=== PATIENT | female | born 1980 | race Caucasian/White ===

== ENCOUNTER 2016-11-14 11:50 | Emergency (ER) | payer OTHER ==
[~2016-11-14] VITALS: Ht 154.9 cm; Wt 72.6 kg
--- NOTE | ~2016-11-14 | EKG ---
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
[2016-11-14] MEDS ORDERED: MOBIC15 MG PO (14:22)
[2016-11-14 14:44] VITALS: BP 165/84
== END 2016-11-14 14:56 | disposition home or self-care (01) ==
LOC: ER 11:50
DX: M94.0 Chondrocostal junction syndrome [Tietze] (principal); F41.9 Anxiety disorder, unspecified; F10.99 Alcohol use, unspecified with unspecified alcohol-induced disorder

== ENCOUNTER 2017-09-24 12:07 | Emergency (ER) | payer OTHER ==
[~2017-09-24] VITALS: Ht 152.4 cm; Wt 72.6 kg
--- NOTE | ~2017-09-24 | EKG ---
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: [facility] : 1980 Requested By: Kasia Sharma Order Number: [id number] MD: Hardik Floyd Measurements Intervals [place] Rate: 110 P: 65 SC: 138 QRS: 20 QRSD: 96 T: -22 QT: 329 QTc: 446 Interpretive Statements Sinus tachycardia Nonspecific T abnormalities, anterior leads Compared to ECG 11/14/2016 12:11:31 No significant changes Electronically Signed On 09-24-2017 16:39:46 CDT by Hardik Floyd [email or web address] <ELECTRONICALLY SIGNED> By: Hardik Floyd MD, [facility] 09/24/17 1639 1240 1240 Hardik Floyd MD, FACC /EPI
[~2017-09-24 12:07] MED LIST: MOBIC15 MG PO
[2017-09-24 13:56] LABS: ABSOLUTE NEUTROPHILS 5.6 thou/uL (1.4-8.2); BASOPHILS 0.3 % (0.0-2.0); EOSINOPHILS 0.1 % (0.0-3.0); HEMATOCRIT 42.4 % (37.0-47.0); HEMOGLOBIN 14.5 gm/dL (12.0-15.0); LYMPHOCYTES 22.6 % (24.0-44.0); MCH 32.2 pg (26.0-34.0); MCHC 34.3 g/dL (28.0-37.0); MCV 93.8 fL (80.0-100.0); MONOCYTES 6.3 % (1.0-8.0); PLATELET COUNT 223 thou/uL (150-400); POLYS 70.7 % (36.0-66.0); RBC 4.52 mil/uL (4.20-5.00); URINE BILIRUBIN NEGATIVE (Negative); URINE BLOOD NEGATIVE (Negative); URINE CLARITY SL CLOUDY; URINE COLOR YELLOW; URINE GLUCOSE-RANDOM* NEGATIVE (Negative); URINE KETONES 1+ (Negative); URINE LEUKOCYTES NEGATIVE (Negative); URINE NITRITE NEGATIVE (Negative); URINE PROTEIN (DIPSTICK) TRACE (Negative); URINE SPECIFIC GRAVITY 1.025 (1.005-1.035); URINE UROBILINOGEN 0.2 E.U./dl (0.2-1.0); WBC 7.9 thou/uL (4.0-11.0)
[2017-09-24] MEDS ORDERED: LISINOPRIL-HCT1 EAC2 PO (13:58)
[2017-09-24] MEDS ORDERED: ORTHO TRI-CYCL1 EACH PO (14:00)
[2017-09-24 14:03] LABS: ANION GAP 14 mmol/L (7-16); BUN 10 mg/dL (7-18); CALCIUM 8.8 mg/dL (8.5-10.1); CHLORIDE 93 mmol/L (98-107); CO2 24 mmol/L (21-32); CREATININE 0.8 mg/dL (0.6-1.0); GLUCOSE 108 mg/dL (74-106); POTASSIUM 3.7 mmol/L (3.5-5.1); SODIUM 131 mmol/L (136-145)
[2017-09-24 14:12] LABS: ALBUMIN 3.6 g/dL (3.4-5.0); SGOT 170 U/L (15-37); SGPT 94 U/L (30-65); TOTAL BILIRUBIN 2.9 mg/dL (<0.1-1.0); TOTAL PROTEIN 7.6 g/dL (6.4-8.2); TROPONIN-I < 0.04 ng/mL (<0.06)
[2017-09-24] MEDS ORDERED: ATIVAN0.5 MG PO (15:23)
[2017-09-24] MEDS ORDERED: BUTALB-APAP-CA1 EACH PO (15:56)
[2017-09-24] MEDS ORDERED: MOBIC7.5 MG PO (15:56)
[2017-09-24 16:07] VITALS: BP 129/87
== END 2017-09-24 16:08 | disposition home or self-care (01) ==
LOC: ER 12:07
PROVIDERS: Physician Assistant
DX: R07.9 Chest pain, unspecified (principal); F41.9 Anxiety disorder, unspecified; R51 Headache; R20.2 Paresthesia of skin; Z91.14 Patient's other noncompliance with medication regimen; F32.9 Major depressive disorder, single episode, unspecified

== ENCOUNTER 2018-04-24 09:14 | Emergency (ER) | payer OTHER ==
[~2018-04-24] VITALS: Ht 152.4 cm; Wt 72.6 kg
--- NOTE | ~2018-04-24 | EKG ---
[address] [address] ELECTROCARDIOGRAM REPORT Name: ADALGISA MACIEL Berta Room #: [facility]#: [id number] Admission: 04/24/18 Attend Phys: Discharge: Date of : 82 Report #: [id number] THIS REPORT FOR: //name// 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
[~2018-04-24 09:14] MED LIST changes: +ATIVAN0.5 MG PO; +BIRTH CONTROL; +BUTALB-APAP-CA1 EACH PO; +LISINOPRIL-HCT1 EAC2 PO; +MOBIC7.5 MG PO; +ORTHO TRI-CYCL1 EACH PO; +ZOFRAN ODT4 MG PO
[2018-04-24 09:43] LABS: ABSOLUTE NEUTROPHILS 2.7 thou/uL (1.4-8.2); BASOPHILS 0.9 % (0.0-2.0); EOSINOPHILS 1.1 % (0.0-3.0); HEMATOCRIT 43.1 % (37.0-47.0); HEMOGLOBIN 14.7 gm/dL (12.0-15.0); MCHC 34.2 g/dL (28.0-37.0); MCV 93.7 fL (80.0-100.0); MONOCYTES 10.5 % (1.0-8.0); PLATELET COUNT 212 thou/uL (150-400); POLYS 49.5 % (36.0-66.0); RDW 15.2 % (10.5-14.5); WBC 5.5 thou/uL (4.0-11.0)
[2018-04-24 09:51] LABS: ANION GAP 14 mmol/L (7-16); BUN 6 mg/dL (7-18); CALCIUM 9.8 mg/dL (8.5-10.1); CHLORIDE 99 mmol/L (98-107); CO2 24 mmol/L (21-32); CREATININE 0.6 mg/dL (0.6-1.0); GLUCOSE 93 mg/dL (74-106); POTASSIUM 3.6 mmol/L (3.5-5.1)
[2018-04-24 09:54] LABS: SODIUM 137 mmol/L (136-145)
[2018-04-24 09:59] LABS: SGOT 183 U/L (15-37); SGPT 118 U/L (30-65); TOTAL BILIRUBIN 2.1 mg/dL (<0.1-1.0); TOTAL PROTEIN 8.3 g/dL (6.4-8.2); TROPONIN-I <0.06 ng/mL (<0.06)
[2018-04-24] MEDS ORDERED: ATIVAN0.5 MG PO (11:33)
[2018-04-24] MEDS ORDERED: LISINOPRIL-HCT1 EAC2 PO (11:33)
[2018-04-24] MEDS ORDERED: MOBIC7.5 MG PO (12:07)
[2018-04-24 12:10] VITALS: BP 158/99
== END 2018-04-24 12:11 | disposition home or self-care (01) ==
LOC: ER 09:14
PROVIDERS: Physician Assistant
DX: F41.9 Anxiety disorder, unspecified (principal); R07.89 Other chest pain; I10 Essential (primary) hypertension; E83.42 Hypomagnesemia; Z76.0 Encounter for issue of repeat prescription; M79.604 Pain in right leg; F32.9 Major depressive disorder, single episode, unspecified

== ENCOUNTER 2019-08-12 05:12 | Inpatient (IN) | payer OTHER ==
[2019-08-12] VITALS (7 sets, daily range): BP systolic 101–130; BP diastolic 65–83
[~2019-08-12] VITALS: Ht 154.9 cm; Wt 74.7 kg
[2019-08-12] MEDS ORDERED: SUPER THERAVIT1 EACH PO (05:21)
--- NOTE | 2019-08-12 06:53 | NUR ---
NURSE ATTEMPT LINE AND TUBES X3, LINE PLACED FOR MEDICATION ET FLUIDS. LAB NOTIFIED TO DRAW LABS NEEDED 0644.
[2019-08-12 08:28] LABS: HEMATOCRIT 41.8 % (37.0-47.0); HEMOGLOBIN 13.2 gm/dL (12.0-15.0); MCH 32.8 pg (26.0-34.0); MCHC 31.5 g/dL (28.0-37.0); MCV 104.2 fL (80.0-100.0); RBC 4.01 mil/uL (4.20-5.00); RDW 18.4 % (10.5-14.5); WBC 8.9 thou/uL (4.0-11.0)
[2019-08-12 08:37] LABS: ANION GAP 25 mmol/L (7-16); BUN 9 mg/dL (7-18); CALCIUM 8.9 mg/dL (8.5-10.1); CHLORIDE 89 mmol/L (98-107); CO2 17 mmol/L (21-32); CREATININE 1.4 mg/dL (0.6-1.0); GLUCOSE 83 mg/dL (74-106); POTASSIUM 3.6 mmol/L (3.5-5.1); SODIUM 131 mmol/L (136-145)
[2019-08-12 08:40] LABS: PROTIME 21.7 Seconds (9.3-11.4)
[2019-08-12 08:47] LABS: INR 2.1; LIPASE 117 U/L (73-393); SGOT 244 U/L (15-37); SGPT 78 U/L (30-65); TOTAL BILIRUBIN 9.6 mg/dL (<0.1-1.0); TOTAL PROTEIN 6.7 g/dL (6.4-8.2); TROPONIN-I <0.06 ng/mL (<0.06)
[2019-08-12 08:57] LABS: ABSOLUTE NEUTROPHILS 6.6 thou/uL (1.4-8.2)
[2019-08-12 08:58] LABS: ANISOCYTOSIS 1+; PLATELET COUNT 117 thou/uL (150-400); PLATELET ESTIMATE NORMAL
[2019-08-12 09:51] LABS: BE(vivo) -12.7 mmol/L (-2 to +3); HCO3 10.5 mmol/L (22.0-26.0); PO2 94.6 mmHg (80.0-100.0); pH 7.363 (7.360-7.450); sO2 97.2 % (92.0-98.0)
[2019-08-12 09:56] LABS: PCO2 18.9 mmHg (35.0-45.0)
[2019-08-12 10:11] LABS: MAGNESIUM 1.1 mg/dL (1.8-2.4); PHOSPHORUS 3.9 mg/dL (2.5-4.9)
--- NOTE | 2019-08-12 10:35 | NUR ---
HAND OFF TOOL SENT AT THIS TIME
[2019-08-12 10:59] LABS: FOLIC ACID 9.8 ng/mL (8.6-58.9)
--- NOTE | 2019-08-12 15:45 | EKG ---
[facility] [place] [address] ELECTROCARDIOGRAM REPORT Name: ADALGISA MACIEL Room #: 216-P ADM IN M.R.#: [id number] Admission: 08/12/19 Attend Phys: Douglas Kay MD Discharge: Date of : 82 Report #: [id number] THIS REPORT FOR: cc: NO FAMILY PHYSICIAN or PCP NO FAMILY PHYSICIAN or PCP Hardik Floyd MD [facility] THIS REPORT FOR: //name// [facility] ED Test Date: 2019-08-12 Test Time: 05:22:18 Pat Name: ADALGISA MACIEL Department: Room: 216 Gender: F Behavior Therapist: KELSEY : 1980 Requested By: Gildardo Cotton Order Number: [id number] MD: Hardik Floyd Measurements Intervals [place] Rate: 115 P: 52 [place]: 135 QRS: 30 QRSD: 85 T: 20 QT: 331 QTc: 458 Interpretive Statements Sinus tachycardia RSR' in V1 or V2, right VCD Compared to ECG 04/24/2018 09:26:58 RSR' in V1 or V2 now present Electronically Signed On 08-12-2019 15:43:59 CDT by Hardik Floyd [email or web address] <ELECTRONICALLY SIGNED> By: Hardik Floyd MD, [facility] 08/12/19 1543 0522 0522 Hardik Floyd MD, [facility] /EPI
[2019-08-13] VITALS (8 sets, daily range): BP systolic 110–124; BP diastolic 73–81
[2019-08-13 07:44] LABS: HEMATOCRIT 36.4 % (37.0-47.0); MCH 33.1 pg (26.0-34.0); MCV 100.3 fL (80.0-100.0); RBC 3.63 mil/uL (4.20-5.00); RDW 18.3 % (10.5-14.5); WBC 6.1 thou/uL (4.0-11.0)
[2019-08-13 08:05] LABS: PROTIME 20.7 Seconds (9.3-11.4)
[2019-08-13 08:06] LABS: CALCIUM 7.7 mg/dL (8.5-10.1); CREATININE 1.6 mg/dL (0.6-1.0); MAGNESIUM 1.2 mg/dL (1.8-2.4)
[2019-08-13 08:08] LABS: POTASSIUM 2.9 mmol/L (3.5-5.1)
[2019-08-13 08:25] LABS: ABSOLUTE NEUTROPHILS 4.1 thou/uL (1.4-8.2); ANISOCYTOSIS 1+; PLATELET COUNT 82 thou/uL (150-400); PLATELET ESTIMATE DECREASED
[2019-08-13 10:28] LABS: ALBUMIN 2.5 g/dL (3.4-5.0); DIRECT BILIRUBIN 6.8 mg/dL (<0.1-0.2); TOTAL PROTEIN 5.5 g/dL (6.4-8.2)
--- NOTE | 2019-08-13 13:11 | NUR ---
assessment: CM REVIEWED CHART AND MET WITH PATIENT AT THE BEDSIDE. PT IS ALERT AND ORIENTED X4. PT REPORTS SHE LIVES AT HOME WITH HER FAMILY AND IS INDEPENDENT WITH ADLS AND AMBULATION. PATIENT IS LISTED PATIENT PAY AND CM DID CONFIRM WITH PATIENT THAT SHE DOES NOT HAVE INSURANCE. CM RECEIVED A CONSULT FOR ALCOHOL ABUSE. CM DISCUSSED IF PATIENT NEEDED ANY RESOURCES FOR AA/ALCOHOL USE AND PT DENIES THE NEED FOR IT. CM DISCUSSED ROLE. PT DOES NOT ANTICIPATE HAVING ANY NEEDS.
--- NOTE | 2019-08-13 18:38 | NUR ---
ADMISSIONS TEAM CALLED BACK AND DENIES THIS PT TRANSFER TO [facility]. DR CASTAÑEDA AND GRAIN MIXER WERE PAGED TO NOTIFY BUT NO CALL BACK THIS TIME.
--- NOTE | 2019-08-13 21:57 | NUR ---
PT 2045HRS APTT 183.7. HEPARIN TURNED OFF FOR 1 HR PER PROTOCOL AND NEON PUMPER NOTIIFIED OF CRITICALLY HIGH APTT. ORDER TO REPEAT THE APTT LAB AND FOLLOW THE PROTOCOL
[2019-08-14 01:44] LABS: URINE BILIRUBIN 3+ (Negative); URINE BLOOD TRACE (Negative); URINE CLARITY SL CLOUDY; URINE COLOR YELLOW; URINE GLUCOSE-RANDOM* TRACE (Negative); URINE KETONES TRACE (Negative); URINE LEUKOCYTES-REFLEX TRACE (Negative); URINE NITRITE-REFLEX NEGATIVE (Negative); URINE PROTEIN (DIPSTICK) 1+ (Negative)
[2019-08-14 01:54] LABS: AMP/METHAMP Negative (Negative); BARBITURATES Negative (Negative); BENZODIAZEPINES Negative (Negative); COCAINE Negative (Negative); METHADONE Negative (Negative); OPIATES Negative (Negative); PCP Negative (Negative)
[2019-08-14 02:01] LABS: BACTERIA-REFLEX 1-9 Few /HPF (None Seen); MUCUS 0-3 Light strn/LPF (None Seen); SQUAMOUS 4-10 Moderate /LPF (0-3); URINE RBC 0-2 Rare /HPF (0-2); URINE WBC-REFLEX 0-5 Rare /HPF (0-5)
[2019-08-14 02:02] LABS: CALCIUM OXALATE 0-3 Few /LPF (None Seen); CELLULAR CASTS 0-3 Few /LPF (None Seen); HYALINE CASTS 0-3 Few /LPF (None Seen)
[2019-08-14 04:45] VITALS: BP 115/73
[2019-08-14 05:20] LABS: CALCIUM 7.9 mg/dL (8.5-10.1); CREATININE 1.2 mg/dL (0.6-1.0); MAGNESIUM 1.2 mg/dL (1.8-2.4); PHOSPHORUS 0.6 mg/dL (2.5-4.9)
[2019-08-14 05:22] LABS: POTASSIUM 2.9 mmol/L (3.5-5.1)
--- NOTE | 2019-08-14 05:55 | NUR ---
CRITICAL LAB RESULSTS APPT = 109.1, K = 2.9, MG = 1.2. CHIEF COUNSEL NOTIFIED. ORDERS OBTAINED FOR KCL 40 MEQ PO X1, MG SULFATE 4MG IV X1 AND CONTINUE FOLLOWING PROTOCOL FOR HEPARIN & APTT. CHECKED WITH PHARMACY AND PHARMACY CONFIRMED THAT MG SULFATE IS COMPATIBLE WITH BOTH NS W/KCL AND ZOYSN WHICH ARE BOTH RUNNING OF ONE OF PT'S IV LINES.
[2019-08-14 08:40] VITALS: BP 115/83
[2019-08-14 11:48] VITALS: BP 113/68
--- NOTE | 2019-08-14 11:56 | NUR ---
ON-GOING ASSESSMENT: LEONORA WAS NOTIFIED THAT PATIENT IS NEEDING TO TRANSFER TO ANOTHER [facility]UTE [facility] FOR DIAGNOSTIC LAPROSCOPY DUE TO PORTAL VEIN THROMBOSIS. CM WORKING WITH TO ATTEMPT TO TRANSFER AND CONTACTED [facility] WHO REPORTS THEY CANNOT ACCEPT AT THIS TIME DUE TO BEING AT CAPACITY FOR PATIENT PAY SERVICES. [facility] TRANSFER TEAM WAS CONTACTED AND AWAITING FURTHER INPUT AT THIS TIME. LEONORA ALSO LEFT VM WITH [facility] AND AWAITING INPUT.
[2019-08-14 12:19] LABS: MAGNESIUM 2.6 mg/dL (1.8-2.4); POTASSIUM 3.1 mmol/L (3.5-5.1)
--- NOTE | 2019-08-14 15:17 | NUR ---
leonora spoke with heidy AT [facility] TRANSFER LINE [phone] WHO STATES THAT [facility] HAS DECLINE, THEY HAVE SENT INFORMATION TO [place] WHO HAS TO REVIEW WITH ADMINISTRATION TO SEE IF THEY HAVE MET THEIR CAP OR IF THEY COULD POSSIBLE ACCEPT. CLINICAL HAS ALSO BEEN SENT TO [facility] WHO WILL REVIEW. ALSO LEONORA ATTEMPTED TO REACH OUT [place] AND LEFT MULTIPLE MESSAGES BUT HAS NOT RECEIVED A CALL BACK YET. LEONORA ALSO CONTACTED [facility] AND WILL CONTACT DR GUILLEN ABOUT POSSIBLE ACCEPTANCE AND WAITING ON INPUT.
--- NOTE | 2019-08-14 15:35 | NUR ---
AWAITING ON INPUT FROM POSSIBLE FACILITIES FOR TRANSFER. CM WILL CONTACT UNIT OR FACILITY WILL CONTACT UNIT DIRECTLY IF THEY ARE ABLE TO ACCEPT. REPORT NUMBER WILL BE PROVIDED AT THAT TIME. CHART COPY HAS BEEN ORDERED.CM HAS AMBULANCE FORM ON THE FRONT OF THE CHART THAT WILL NEED TO BE FINISHED AND FAXED TO [facility] FAX:[phone] THEN CONTACT THEM AT [phone] TO ARRANGE TRANSPORT. TRANSFER FORM IS ALSO ON THE FRONT OF CHART AND CM DISCUSSED WITH RN ABOUT COMPLETING THIS PRIOR TO DISCHARGE. STILL AWAITING INPUT FROM [facility], [facility], AND [facility] AT THIS TIME. ATTENDING AND DR. GUILLEN AWARE. CM WILL CONTINUE TO FOLLOW.
[2019-08-14 16:26] VITALS: BP 108/75
--- NOTE | 2019-08-14 16:51 | NUR ---
PT CARE ASSUMED APPROX 0700. PT DENIES PAIN AND SOA. VSS. UP WITH SBA. TOLERATING POC. ELECTROLYTE REP TO POC THIS SHIFT. WILL MONITOR. HEP GTT REMAINS TO POC. TITRATING PER PROTOCOL. PT ACCEPTED AT [facility] TRANSFER. AWAITING TRANSFER TEAM TO CALL BACK WITH ROOM NUMBER AND ROUTE FOR REPORT. CASE MANAGEMENT AWARE. DRs AWARE. PT DENIES QUESTIONS OR CONCERNS REGARDING POC OR TRANSFER. WILL CONTINUE TO TREAT UNTIL DISCHARGE. THIS NURSE TO FOLLOW UP WITH DISCHARGE PLANS.
--- NOTE | 2019-08-14 17:18 | NUR ---
[facility] DENIED PT AFTER INITITALLY ACCEPTING SO CASE MANAGEMENT NOTIFIED AND DR WALKER AWARE. CASE MAN REPORTS THAT THEY WILL NOTIFY DR GUILLEN. PT AWARE AND DENIES QUESTIONS OR CONCERNS.
[2019-08-14 19:19] LABS: % SATURATION 37 % (20-39); IRON 53 ug/dL (50-170); TIBC 144 ug/dL (250-450)
[2019-08-14 19:36] VITALS: BP 107/71
[2019-08-15 00:24] VITALS: BP 108/66
[2019-08-15 01:57] VITALS: BP 108/66
[2019-08-15 04:27] VITALS: BP 104/66
[2019-08-15 05:08] LABS: IgG 1102 mg/dL (700-1600)
--- NOTE | 2019-08-15 05:26 | NUR ---
ASSUMED PT CARE AT AROUND 1900, PT IS ALERT AND ORIENTEDX4, ASSESSMENTS CHARTED, SR ON THE MONITOR, VSS, ON ROOM AIR, CONTINUES TO RECEIVE HEPARIN, MEDS GIVEN CHARTED, RESTING IN BED WITH, NO COMPLAINS, WILL CONTINUE TO MONITOR
[2019-08-15 05:46] LABS: CALCIUM 7.4 mg/dL (8.5-10.1); POTASSIUM 3.6 mmol/L (3.5-5.1)
[2019-08-15 07:30] VITALS: BP 111/66
--- NOTE | 2019-08-15 08:03 | NUR ---
late entry from 08/14/19: leonora spoke with [facility] who states after further review they decline patient stating she needs a hepatibiliary surgeon and she needs to go to . LEONORA NOTIFIED ATTENDING/ DR GUILLEN. CM CONTACTED TO SEE IF THEY WOULD REVISIT THIS CASE DUE TO PATIENT NEEDING A HEPATIBILIARY SURGEON AND NO OTHER FACILITY HAS ACCEPTED HER AND THIS IS AN EMERGENT SITUATION. THEY STATED THEY HAVE ALREADY DECLINED PATIENT AND THAT STILL STANDS. CM ATTEMPTED TO DISCUSS REVISITING THE CASE DUE TO SEVERITY OR RISK FOR PT AND THEY STATE SHE IS STILL DECLINE. LEONORA REACHED OUT TO DR GUILLEN AND ASKED IF WE COULD MERGE A CALL TO SEE IF THEY WOULD RECONSIDER. LEONORA WELL DR. GUILLEN SPOKE WITH TRANSFER NURSE WHO STATES THEY CONTINUE TO DECLINE PATIENT AND CAN TAKE DR GUILLEN NUMBER DOWN BUT SHE CANNOT GUARENTEE A CALL BACK. LEONORA REACHED OUT TO [facility] TRANSFER TEAM TO CONIRM IF [facility] TO SEE IF THEY HAD A HEPATIBILIARY SURGEON AND IF THEY COULD PLEASE RE-REVIEW THIS CASE PATIENT IS NEEDING HIGHER LEVEL OF CARE. SHE STATES SHE WOULD ESCALATE IT TO SEE IF IT COULD BE REREVIEWED. [facility] ENDED UP ACCEPTING PATIENT BUT CANNOT ACCEPT UNTIL 08/14 IN THE AM. LENOORA NOTIFIED ATTENDING AND DR. GUILLEN WELL BEDSIDE RN.
[2019-08-15 08:15] VITALS: BP 111/66
--- NOTE | 2019-08-15 08:15 | NUR ---
ON-GOING ASSESSMENT: PT IS TO TRANSFER TO [facility] TODAY. CHART COPY IS ON THE FRONT OF CHART. CM PROVIDED BEDSIDE RN WITH THE TRANSFER FORM. [facility] FORM IS ON THE FRONT OF CHART. LEONORA CONTACTED [facility] TO ARRANGE TRANSPORTATION AND HAS BEEN ARRANGED FOR . BEDSIDE RN NOTIFIED WELL PATIENT. BEDSIDE RN HAD THE NUMBER TO CALL REPORT TO [facility]. ATTENDING NOTIFIED AND VISITED WITH PATIENT THIS AM. PATIENT IS GOING TO [facility] ON HEPARIN GTT WITH PUMP AND WILL NEED THE PUMP BROGHT BACK TO [facility]. LEONORA CONTACTED JOSE GREENWOOD [phone] TO GO TO [facility] TO VICE PRESIDENT [employer] SALES PUMP AND BRING IT BACK TO [facility] (TRACKING NUMBER [id number]). LEONORA SPOKE WITH RN AT [facility] WHO STATES SHE WOULD LEAVE THE PUMP AT THE NURSES STATING AND NOTIFIED JOSE GREENWOOD OF LOCATION PUMP AT [facility] WILL BE ON 4N.
[2019-08-15] MEDS ORDERED: ZOSYN 3.3753.375 GM IV (08:30)
[2019-08-15] MEDS ORDERED: HEPARIN SO1000 UNIT/ IV PUSH (08:30)
[2019-08-15] MEDS ORDERED: LACTULOSE20 GM/30 M PO (08:32)
[2019-08-15] MEDS ORDERED: FENTANYL 050 MCG/1 M IV PUSH (08:32)
[2019-08-15] MEDS ORDERED: PEPCID20 MG PO (08:33)
[2019-08-15] MEDS ORDERED: VITAMIN B-1100 M2 PO (08:33)
[2019-08-15] MEDS ORDERED: K-DUR 20 MEQ T20 MEQ PO (08:33)
--- NOTE | 2019-08-15 08:54 | NUR ---
PT CARE ASSUMED APPROX 0700. PT DENIES PAIN AND SOA. VSS. HEP GTT REMAINS TO POC. PT TOLERATING POC AND DENIES QUESTIONS OR CONCERNS REGARDING POC OR HOSPITAL TRANSFER. ARRANGEMENTS MADE THIS AM FOR PT TO BE RECEIVED AT [facility] THIS AM. REPORT CALLED TO [facility] FLOOR NURSE. SHE DENIED QUESTIONS OR CONCERNS REGARDING TRANSFER OR PT POC. CASE MANAGEMENT AND HOSPITALIST COMPLETED ARRANGEMENTS AND PAPERWORK. PT SENT ON HEP GTT WITH ALL RECENT LABS AND TITRATIONS REPORTED TO [facility]. [facility] AWARE THAT PT IS IN ROUTE. ALL BELONGINGS IN PT POSSESSION. REPORT GIVEN TO AMBULANCE AT BEDSIDE PRIOR TO LEAVING UNIT.
[2019-08-15 14:07] LABS: CERULOPLASMIN 24.3 mg/dL (19.0-39.0)
--- NOTE | 2019-08-16 07:02 | HC ---
[facility] [place] [address] CONSULTATION Name: ADALGISA MACIEL Room #: 216-P [facility] IN M.R.#: [id number] Admission: 08/12/19 Attend Phys: Douglas Kay MD Discharge: 08/15/19 Date of : 82 Report #: [id number] THIS REPORT FOR: cc: NO FAMILY PHYSICIAN or PCP NO FAMILY PHYSICIAN or PCP Iglesia Bauer MD ~ CC: Vicky Mccollum NO PCP Douglas Kay DATE OF SERVICE: 08/14/2019 We were asked by Dr. Kay to see the patient. HISTORY OF PRESENT ILLNESS: The patient is a 38-year-old admitted 07/14/2019 with abdominal pain. The patient had complaints of nausea, vomiting, abdominal distention and decreased appetite, which started approximately 4 days prior to admission. The patient states that she has a history of alcohol abuse and was told approximately 5 months ago that she had liver disease. The patient stopped drinking at that time, but due to some stressful situation she started drinking again approximately 1 month ago and this occurred in the wake of that. Since admission, the patient was found to have portal vein thrombosis and we were asked to see the patient. The patient states that her previous evaluation was at [facility] approximately 5 months ago. There is no history of hematemesis, hematochezia, or melena. PAST MEDICAL HISTORY: Significant for alcohol abuse, alcoholic hepatitis. The patient also states that she has had hypertension. MEDICATIONS: Lisinopril, hydrochlorothiazide, lorazepam, meloxicam. ALLERGIES: None known. PAST SURGICAL HISTORY: . SOCIAL HISTORY: The patient states she is drinking approximately 1 pint of alcohol per day. Denies tobacco use, denies drug use. REVIEW OF SYSTEMS: GENERAL: No fever or chills. Appetite poor on admission. EYES: No vision change. HEENT: No headache, no nasal congestion. No swallowing problems. [facility] [address] [place] [address] CONSULTATION Name: ADALGISA MACIEL Room #: 216-[facility]#: [id number] Admission: 08/12/19 Attend Phys: Douglas Kay MD Discharge: 08/15/19 Date of : 82 Report #: [id number] CARDIAC: No chest pain or palpitations. RESPIRATORY: No shortness of breath. No syncope. GASTROINTESTINAL: Nausea and vomiting, abdominal pain and distention. Denies gastrointestinal blood loss. GENITOURINARY: No urgency or frequency. No blood. MUSCULOSKELETAL: No bone or joint pain. SKIN: No rash or infection. NEUROLOGIC: No motor or sensory loss. ENDOCRINE: No goiter, no tremor. HEMATOLOGIC: Denies clotting problems in the past. Denies bruising or bleeding. PHYSICAL EXAMINATION: CONSTITUTIONAL: The patient is lying in bed, seems comfortable. VITAL SIGNS: Temperature 36.8, pulse rate 102, respiratory rate 17, blood pressure 115/83, O2 sat 98 on room air. HEENT: Faint scleral icterus, no arcus. NECK: No mass, no bruit. CHEST: Clear to auscultation. HEART: Rhythm regular, no murmur. ABDOMEN: Diffuse tenderness. No peritoneal signs, seems somewhat distended. Difficult to feel hepatomegaly due to tenderness. Not clear whether there is a fluid wave. EXTREMITIES: No clubbing, cyanosis or edema. VASCULAR: 2+ distal pulses. MUSCULOSKELETAL: No bone or joint asymmetry or deformity. SKIN: No rash or infection. IMPRESSION: According to the ultrasound, the patient has portal vein thrombosis. This is most likely due to liver disease in the absence of cirrhosis. One would expect a hypercoagulable disorder. I am not sure that there is any role for surgery. The last mesocaval shunt that I saw or did was in 1983, largely portosystemic shunts are of historic value only since the baptism of the TIPS procedure, transjugular intrahepatic portal shunting and of course presence of encephalopathy is a risk factor. This seems to have cleared and one hopes that as the acute hepatitis resolves that liver function will continue to improve. The patient has some mild thrombocytopenia and is being seen by Hematology. Overall, the patient appears to be improving with current medical management and I am not sure that I have anything in addition to offer. Thank you for the consult. <ELECTRONICALLY SIGNED> By: Iglesia Bauer MD 08/16/19 0702 0850 0950 Iglesia Bauer MD /nt
[2019-08-16 09:08] LABS: ANA INTERPRETATION Negative (Negative)
== END 2019-08-15 08:59 | disposition short-term general hospital (02) | DRG 441 ==
LOC: ER 05:12 → EROBS 10:04 → 2N 10:04
PROVIDERS: Emergency Medicine; Emergency Medicine Emergency Medical Services; Nurse Practitioner; Nurse Practitioner Family; Specialist; ADMIT Internal Medicine
DX: K72.90 Hepatic failure, unspecified without coma (principal); E43 Unspecified severe protein-calorie malnutrition; I81 Portal vein thrombosis; E87.2 Acidosis; N17.9 Acute kidney failure, unspecified; D68.9 Coagulation defect, unspecified; K70.10 Alcoholic hepatitis without ascites; F41.9 Anxiety disorder, unspecified; F32.9 Major depressive disorder, single episode, unspecified; I10 Essential (primary) hypertension; D69.6 Thrombocytopenia, unspecified; F10.20 Alcohol dependence, uncomplicated; K70.30 Alcoholic cirrhosis of liver without ascites; E87.6 Hypokalemia; E83.42 Hypomagnesemia; E83.39 Other disorders of phosphorus metabolism; Z87.891 Personal history of nicotine dependence; Z68.31 Body mass index [BMI] 31.0-31.9, adult; Z80.0 Family history of malignant neoplasm of digestive organs; Z79.899 Other long term (current) drug therapy
CPT/HCPCS: 10081

== ENCOUNTER 2019-10-03 02:04 | Inpatient (IN) | payer OTHER ==
[~2019-10-03] VITALS: Ht 152.4 cm; Wt 80.6 kg
[2019-10-03] VITALS (7 sets, daily range): BP systolic 101–140; BP diastolic 54–74
[~2019-10-03 02:04] MED LIST changes: +FENTANYL 050 MCG/1 M IV PUSH; +HEPARIN SO1000 UNIT/ IV PUSH; +K-DUR 20 MEQ T20 MEQ PO; +LACTULOSE20 GM/30 M PO; +PEPCID20 MG PO; +SUPER THERAVIT1 EACH PO; +VITAMIN B-1100 M2 PO; +ZOSYN 3.3753.375 GM IV
[2019-10-03] MEDS ORDERED: PENTOXIFYLLINE400 MG PO (02:39)
[2019-10-03] MEDS ORDERED: OMEGA 3 PO (02:39)
[2019-10-03] MEDS ORDERED: FOLIC ACID1 MG PO (02:40)
[2019-10-03 03:08] LABS: ABSOLUTE NEUTROPHILS 4.1 thou/uL (1.4-8.2); EOSINOPHILS 0.4 % (0.0-3.0); HEMATOCRIT 27.1 % (37.0-47.0); HEMOGLOBIN 9.2 gm/dL (12.0-15.0); LYMPHOCYTES 36.9 % (24.0-44.0); MCH 36.2 pg (26.0-34.0); MCHC 33.8 g/dL (28.0-37.0); MCV 107.2 fL (80.0-100.0); MONOCYTES 9.1 % (1.0-8.0); PLATELET COUNT 143 thou/uL (150-400); POLYS 52.6 % (36.0-66.0); RBC 2.53 mil/uL (4.20-5.00); RDW 16.8 % (10.5-14.5); WBC 7.8 thou/uL (4.0-11.0)
[2019-10-03 03:15] LABS: INR 2.3; PROTIME 23.2 Seconds (9.3-11.4)
[2019-10-03 03:20] LABS: ALBUMIN 2.2 g/dL (3.4-5.0); CALCIUM 6.7 mg/dL (8.5-10.1); CREATININE 1.5 mg/dL (0.6-1.0); TOTAL BILIRUBIN 6.8 mg/dL (<0.1-1.0); TOTAL PROTEIN 6.8 g/dL (6.4-8.2)
[2019-10-03 03:23] LABS: POTASSIUM 2.5 mmol/L (3.5-5.1)
[2019-10-03 04:15] LABS: URINE BILIRUBIN 3+ (Negative); URINE BLOOD NEGATIVE (Negative); URINE CLARITY CLOUDY; URINE COLOR YELLOW; URINE GLUCOSE-RANDOM* NEGATIVE (Negative); URINE KETONES TRACE (Negative); URINE NITRITE-REFLEX NEGATIVE (Negative); URINE PROTEIN (DIPSTICK) 1+ (Negative)
[2019-10-03 04:24] LABS: URINE LEUKOCYTES-REFLEX 1+ (Negative)
[2019-10-03 04:28] LABS: SQUAMOUS 4-10 Moderate /LPF (0-3); URINE WBC-REFLEX 6-15 Few /HPF (0-5)
[2019-10-03 04:29] LABS: BACTERIA-REFLEX >30 Many /HPF (None Seen); CRYSTALS None Seen /LPF (None Seen); HYALINE CASTS 4-10 Moderate /LPF (None Seen); MUCUS 0-3 Light strn/LPF (None Seen); URINE RBC 0-2 Rare /HPF (0-2)
[2019-10-03 05:55] LABS: BF NUCLEATED CELLS 107; BF RBC 17104; TOTAL VOLUME 30 mL
[2019-10-03 05:56] LABS: CLARITY CLOUDY; COLOR AMBER; SOURCE ABDOMINAL
--- NOTE | 2019-10-03 06:15 | NUR ---
RADIOLOGIST CALLED ED TO REPORT INFILTRATES ON CHEST X-RAY. THIS NURSE CALLED INPATIENT UNIT TO REPORT THE FINDINGS TO THE NURSE NOW TAKING CARE OF THE PATIENT. WAS TOLD THAT NURSE WAS TIED UP IN A PATIENT ROOM AND THIS NURSE ASKED THAT THE INPATIENT NURSE CALL THE ED AT HIS CONVENIENCE.
--- NOTE | 2019-10-03 07:27 | NUR ---
PT ARRIVED FROM ER VIA W/C AND COVERED WITH A BLANET, WEARING A STANDARD SURGICAL MASK. PT PLACED IN ROOM 358. ADMISSION DATABASE COMPLETED. WILL DEFER ADMISSION ASSESSMENT TO DAY RN. IVF AND MEDICATIONS STARTED PER ORDERS. SEE CHARTING.
--- NOTE | 2019-10-03 08:08 | EKG ---
[facility] [place] [address] ELECTROCARDIOGRAM REPORT Name: ADALGISA MACIEL Room #: 358-P ADM IN M.R.#: [id number] Admission: 10/03/19 Attend Phys: Gus Jeffery Discharge: Date of : 82 Report #: [id number] THIS REPORT FOR: cc: NO FAMILY PHYSICIAN or PCP NO FAMILY PHYSICIAN or PCP Hardik Floyd MD [facility] ~ THIS REPORT FOR: //name// [facility] ED Test Date: 2019-10-03 Test Time: 03:08:23 Pat Name: ADALGISA MACIEL Department: Room: [facility] Gender: F Rn Vascular: : 1980 Requested By: Italo Calvert Order Number: [id number] MD: Hardik Floyd Measurements Intervals [place] Rate: 120 P: 46 ID: [id number] QRS: 32 QRSD: 78 T: 0 QT: 335 QTc: 474 Interpretive Statements Sinus tachycardia Borderline T abnormalities Baseline wander in lead(s) V6 Compared to ECG 08/12/2019 05:22:18 T-wave abnormality now present Electronically Signed On 10-03-2019 8:06:41 CDT by Hardik Floyd [email or web address] <ELECTRONICALLY SIGNED> By: Hardik Floyd MD, [facility] 10/03/19 0806 0308 Hardik Floyd MD, [facility] /EPI
--- NOTE | 2019-10-03 09:32 | NUR ---
PT CARE ASSUMED AT 0700, PT ALERT AND ORIENTED X4, PT COMPLAINS OF NAUSEA, XOFRAN GIVEN PER ORDER. DENIES CHEST PAIN. PT COMPLAINS OF LEFT THIGH PAIN, TINGLING SENSATION. PT ON ROOM AIR, NO SIGNS OF DISTRESS NOTED. ASSESSMENT AND VITALS SIGNS COMPLETED. PT DENIES ANY OTHER NEEDS. CALL LIGHT AND TABLE IN REACH. BED AT LOWEST LEVEL. WILL CONTINUE TO MONITOR.
--- NOTE | 2019-10-03 12:01 | NUR ---
DR. MURRAY ON THE FLOOR, REVIEWED PT NOTES AND LABS, APPORVED TO GET PATINET OF ISOLATION. DR. FREEDMAN PAGED AND NOTIFIED, HE IS OKAY IF PATIENT GETS TRANSFERRED TO [facility] FLOOR. COMPLIANCE TECHNICIAN CALLED AND NOTIFIED.
--- NOTE | 2019-10-03 14:21 | NUR ---
INITIAL ASSESSMENT: SW reviewed chart and spoke with nursing and attending physician. Pt was admitted from home due to fever/cirrhosis. Pt is in Enhanced Isolation to r/o COVID-19. Pt's test is negative. Pt to transfer off of the 3W to med/surg when a bed is available. Pt was at [facility] in July and transferred to [facility] on 08/14 for hepatibiliary surgery services due to portal vein thrombosis. SW spoke with pt via phone. Introduced role of SW. Pt is alert/orientated x 4. Pt reports she lives at home with family. Prior to admission, pt was independent with ADLs. No use of DME. No hx of services or post-acute placement. Pt states she does not have a PCP and would be [facility]. Pt reports she was on dialysis while at [facility], where she was for about 3 weeks. Pt did not require outpatient dialysis at this time. Renal and GI consulted. Pt's goal is to return home when medically stable. SW is following to assist as needed with discharge planning.
--- NOTE | 2019-10-03 15:25 | NUR ---
REPORT GIVEN TO ORION FERRARA. PT BELONGINGS PACKED AND SENT TO 456.
--- NOTE | 2019-10-03 16:11 | NUR ---
PT TRANSFERED TO UNIT FROM 3 AT 1545 IN STABLE CONDITION.ASSESSMENT COMPLETED.VSS.C/O BILAT. LE PAIN. NO MED AVAILABLE.DR FREEDMAN NOTIFIED. WILL BE EXPECTING HIS RETURN CALL.
[2019-10-03 16:44] LABS: BF MACROPHAGE 10; BF NEUTROPHILS 46
[2019-10-04 07:54] LABS: HEMATOCRIT 25.5 % (37.0-47.0); HEMOGLOBIN 8.9 gm/dL (12.0-15.0); MCH 37.2 pg (26.0-34.0); MCHC 34.7 g/dL (28.0-37.0); MCV 107.1 fL (80.0-100.0); RBC 2.38 mil/uL (4.20-5.00); RDW 17.2 % (10.5-14.5); WBC 8.4 thou/uL (4.0-11.0)
[2019-10-04 08:11] LABS: ALBUMIN 1.9 g/dL (3.4-5.0); CALCIUM 6.6 mg/dL (8.5-10.1); CREATININE 1.4 mg/dL (0.6-1.0); MAGNESIUM 1.7 mg/dL (1.8-2.4); POTASSIUM 3.1 mmol/L (3.5-5.1); TOTAL PROTEIN 6.2 g/dL (6.4-8.2)
[2019-10-04 08:12] LABS: TOTAL BILIRUBIN 5.5 mg/dL (<0.1-1.0)
--- NOTE | 2019-10-04 08:13 | NUR ---
PROGRESS PT A/O X4 UP AD MARCEL. REPORTS PAIN TO LEFT HIP THROUGHOUT NIGHT PAIN BECAME WORSE TRAMADOL GIVEN WITH SLIGHT EFFECT. DR. FREEDMAN PAGED TO REQUEST ULTRASOUND AWAITING RETURN CALL PT IS CONCERNED SHE MAY HAVE ANOTHER BLOOD CLOT SINCE SHE RECENTLY HAD A PORTAL VEIN THROMBUS. CONTINUE POC.
[2019-10-04 08:22] VITALS: BP 101/64
--- NOTE | 2019-10-04 13:46 | NUR ---
CARE TEAM INDICATED PT PT IS SLOWLY PROGRESSING TOWARD GOAL OF DISCARGE. PT TESTED POSITIVE FOR CDIFF AND IS NOW IN ISOLATION. CM AWAITING FURTHER WORKUP TO DETERMINE NEEDS UPON DC. PT HAD BEEN LIVING IN A HOUSE WITH FAMILY AND HAD BEEN INDEPDENENT WITH GAIT AND ADLS BOOM MAN. IT IS NOT ANTICIPATED THAT PT WILL BE MEDICALLY STABLE TO DC HOME OVER THE WEEKEND. CM TO FOLLOW INDICATED WITH DC PLANNING.
[2019-10-04 13:53] LABS: URINE BILIRUBIN 2+ (Negative); URINE BLOOD NEGATIVE (Negative); URINE CLARITY CLEAR; URINE GLUCOSE-RANDOM* NEGATIVE (Negative); URINE KETONES TRACE (Negative); URINE LEUKOCYTES TRACE (Negative); URINE NITRITE NEGATIVE (Negative); URINE PROTEIN (DIPSTICK) 1+ (Negative); URINE UROBILINOGEN 0.2 E.U./dl (0.2-1.0)
[2019-10-04 13:58] LABS: ICTOTEST (BILI CONFIRMATORY) Positive (Negative); URINE COLOR BROWNISH
[2019-10-04 14:01] LABS: CASTS None Seen /LPF (None Seen); CRYSTALS None Seen /LPF (None Seen); SQUAMOUS 4-10 Moderate /LPF (0-3); URINE RBC None Seen /HPF (0-2); URINE WBC 6-15 Few /HPF (0-5)
[2019-10-04 14:39] VITALS: BP 111/70
[2019-10-04 19:36] VITALS: BP 104/72
--- NOTE | 2019-10-04 19:52 | NUR ---
Assumed pt care this am, placed on isolation for C-diff. Ascites is noted, hypoactive bowel sounds are present. Initally on clear liquids transitioned to full with low sodium and high proten diet . Up ad fei, diet and medication are well tolerated. Pt took a bath today, VS stable, POC followed, pain managed with medications. Endorsed to the nurse.
--- NOTE | 2019-10-05 02:57 | NUR ---
patient aox4 makes needs known. patient is up at fei. patient abd is distended, bowel sounds present in all 4 quad. pain controlled this shift. +3 edema on ble. patient encouraged to elevate ble. pottassium replaced, pottassium is 3.7 this shift.patient in bed asleep at this time breathing regular and unlaboured.
[2019-10-05 05:55] LABS: HEMOGLOBIN 7.9 gm/dL (12.0-15.0); MCH 37.1 pg (26.0-34.0); MCHC 34.4 g/dL (28.0-37.0); MCV 107.7 fL (80.0-100.0); RBC 2.13 mil/uL (4.20-5.00); RDW 17.2 % (10.5-14.5); WBC 6.9 thou/uL (4.0-11.0)
[2019-10-05 06:17] LABS: INR 1.9; PROTIME 19.7 Seconds (9.3-11.4)
[2019-10-05 06:33] LABS: ALBUMIN 2.9 g/dL (3.4-5.0); CALCIUM 7.3 mg/dL (8.5-10.1); CREATININE 1.2 mg/dL (0.6-1.0); MAGNESIUM 1.8 mg/dL (1.8-2.4); PHOSPHORUS 2.4 mg/dL (2.5-4.9); POTASSIUM 3.8 mmol/L (3.5-5.1); TOTAL BILIRUBIN 4.8 mg/dL (<0.1-1.0); TOTAL PROTEIN 6.4 g/dL (6.4-8.2)
[2019-10-05 14:20] VITALS: BP 130/82
--- NOTE | 2019-10-05 15:07 | NUR ---
ASSUMED CARE AROUND 0700, PT A&O X 4, NO ACUTE DISTRESS NOTED. VSS, O2 ON RA. PT C/O PAIN AND RECEIVED PRN TRAMADOL WITH ADEQUATE RELIEF. IV TO LH FLUSHES WELL, ON ABX FOR UTI. C-DIFF PRECAUTIONS CONTINUED. MEDS GIVEN PER ORDERS. PT ON MONITORED I&O AND DAILY WEIGHT. PT AMBULATES AD MARCEL, RESTING IN BED, CALL LIGHT WITHIN REACH, WILL CONTINUE TO MONITOR PER POC.
[2019-10-05 20:46] VITALS: BP 127/74
[2019-10-06 04:13] VITALS: BP 123/76
--- NOTE | 2019-10-06 04:21 | NUR ---
PROGRESS PT A/O X4 A LITTLE DROWSY THIS EVENING REPORTS PAIN TO BOTH LATERAL THIGHS AND FEET. 4 PLUS EDEMA TO FEET ELEVATED ON PILLOWS SOCKS REMOVED D/T CUTTING INTO ANKLES. ASCITES AND EDEMA IN INCREASING, PT'S LUNGS HAVE SCATTERED CRACKLES AND O2 SATS DROPPING INTO LOW 80'S PLACED ON 2 LITERS OF 02 AND SATS RETURN TO 95%. PT UP AD MARCEL VOIDING LARGE AMOUNTS PER PT. SKIN C/D/I IV INFUSING ORDERED. VSS, IN ISOLATION FOR CDIFF NO STOOLS THIS SHIFT CONTINUE TO MONITOR.
[2019-10-06 04:34] LABS: ALBUMIN 3.3 g/dL (3.4-5.0); CREATININE 1.3 mg/dL (0.6-1.0); PHOSPHORUS 2.7 mg/dL (2.5-4.9); POTASSIUM 3.7 mmol/L (3.5-5.1); TOTAL BILIRUBIN 5.3 mg/dL (<0.1-1.0); TOTAL PROTEIN 6.5 g/dL (6.4-8.2)
[2019-10-06 07:28] VITALS: BP 119/75
[2019-10-06 13:41] VITALS: BP 131/77
[2019-10-06 15:22] VITALS: BP 117/64
[2019-10-06 21:11] VITALS: BP 113/74
[2019-10-07 05:40] VITALS: BP 110/63
[2019-10-07 06:15] LABS: INR 2.2; PROTIME 22.5 Seconds (9.3-11.4)
[2019-10-07 06:20] LABS: ALBUMIN 3.5 g/dL (3.4-5.0); CALCIUM 8.5 mg/dL (8.5-10.1); CREATININE 1.4 mg/dL (0.6-1.0); TOTAL BILIRUBIN 5.7 mg/dL (<0.1-1.0); TOTAL PROTEIN 6.7 g/dL (6.4-8.2)
[2019-10-07 07:58] VITALS: BP 120/75
[2019-10-07 13:26] LABS: CLARITY CLEAR; COLOR YELLOW; SOURCE ABDOMINAL FLUID; TOTAL VOLUME 55 mL
[2019-10-07 13:52] LABS: BF NUCLEATED CELLS 97; BF RBC 279
[2019-10-07 15:24] LABS: BF NEUTROPHILS 0
[2019-10-07 15:25] LABS: BF MACROPHAGE 39
[2019-10-07 19:37] VITALS: BP 118/73
--- NOTE | 2019-10-07 20:00 | NUR ---
PT A&OX4, MELIZA AT TIMES. AMBULATES WITH STAND BY ASSIST. IV INTACT. O2@2L PER NC DESATS TO MID 80'S WHEN NOT ON. PT FOUND SEVERAL TIMES W/O O2 ON TODAY. ISOLATION FOR C DIFF. TOLERATES TRAMADOL FOR PAIN.
[2019-10-07 23:09] VITALS: BP 121/73
--- NOTE | 2019-10-08 02:52 | NUR ---
PT CARE ASSUMED AT 1915 WITH PT IN BED SLEEPING.PT IS A/O X4.PT HAD PARANCENTESIS DONE YESTERDAY AND 6500ML OF FLUID REMOVED.PT IS ON 2L OF O2 NASAL CANULA.PT IS ON DAILY FLUID RESTRICTION OF 1000ML.PT PAIN MANAGED WITH TRAMADOL.PT IS ON MIDODRINE FOR LOW BP.WILL CONTINUE TO MONITOR PER POC
[2019-10-08 06:16] LABS: ALBUMIN 3.5 g/dL (3.4-5.0); CALCIUM 8.8 mg/dL (8.5-10.1); CREATININE 1.5 mg/dL (0.6-1.0); PHOSPHORUS 3.4 mg/dL (2.5-4.9); POTASSIUM 4.1 mmol/L (3.5-5.1)
[2019-10-08 08:30] VITALS: BP 117/67
[2019-10-08 11:14] LABS: HEMATOCRIT 26.8 % (37.0-47.0)
[2019-10-08 12:08] LABS: BODY FLUID ALBUMIN 0.8 g/dL (Not Estab.); BODY FLUID AMYLASE 8 U/L (()); BODY FLUID GLUCOSE 117 mg/dL (()); BODY FLUID LDH 129 IU/L (()); BODY FLUID PROTEIN 1.6 g/dL (())
[2019-10-08 15:35] LABS: SOURCE ABDOMINAL
--- NOTE | 2019-10-08 16:24 | NUR ---
CARE TEAM INDICATED THAT PT IS PROGRESSING TOWARD GOAL OF DISCARGE. INDICATING THAT PT MAY BE MEDICALLY STABLE TO DC WIH CLOSE OP GI FOLLOW UP IN THE NEXT 48 HRS. CM TO FOLLOW INDICATED WITH DC PLANNING.
[2019-10-08 16:36] VITALS: BP 108/72
--- NOTE | 2019-10-08 17:00 | NUR ---
Received awake on bed. Due medications given as prescribed, able to swallow meds w/o difficulty. On O2 at 2lpm via nasal cannula; explained to patient the importance of keeping the oxygen on at all times since the patient desaturates fast if off oxygen. A+Ox4. On 2gm Na diet- encouraged and assisted in eating and drinking, offered snacks from time to time but refused. On fluid restriction- pt informed and aware. With abdominal distention noted- Pt had paracentesis yesterday, they were able to take off 6.5L as reported. Continent of bowel and bladder; assisted in going to the toilet. With generalized edema noted, more noticeable on her bilateral lower extremities; not weeping, skin intact. With SL at R hand and L FA- dressing C/D/I. Maintained on isolation due to Cdiff- on PO Vancomycin. Complained of pain, due PRN pain medications given as prescribed. To continue monitoring patient.
[2019-10-08 21:30] VITALS: BP 121/77
--- NOTE | 2019-10-09 00:52 | NUR ---
ASSUMED PT CARE AT 1915. PT IS A&OX4. PT IS A STANDBY ASSIST. PT CALLS OUT APPROPRIATELY. PT STATES PAIN IN HER RIGHT ABDOMEN AT A 9, ALSO PAIN IN HER LEFT THIGH AT A 7. I ADMINISTERED TRAMADOL. PT ALSO TOOK SCHEDULED MEDS. PT IS ON OXYGEN BUT DOES NOT KEEP IT ON. I RE EDUCATED PT ABOUT THE IMPORTANCE OF WEARING THE NASAL CANULA. PT TOOK SCHEDULED MEDICATION. PT SLEPT THROUGH OUT THE NIGHT.
[2019-10-09 05:46] LABS: HEMATOCRIT 24.6 % (37.0-47.0); HEMOGLOBIN 8.2 gm/dL (12.0-15.0); MCH 36.6 pg (26.0-34.0); MCHC 33.4 g/dL (28.0-37.0); MCV 109.5 fL (80.0-100.0); RBC 2.25 mil/uL (4.20-5.00); RDW 17.1 % (10.5-14.5); WBC 7.7 thou/uL (4.0-11.0)
[2019-10-09 06:27] LABS: ALBUMIN 4.2 g/dL (3.4-5.0); CALCIUM 9.3 mg/dL (8.5-10.1); CREATININE 1.6 mg/dL (0.6-1.0); POTASSIUM 4.4 mmol/L (3.5-5.1); TOTAL BILIRUBIN 5.4 mg/dL (<0.1-1.0)
[2019-10-09 07:58] VITALS: BP 129/81
--- NOTE | 2019-10-09 11:02 | NUR ---
Received awake on bed. Due medications given as prescribed, able to swallow meds w/o difficulty. On O2 at 2lpm via nasal cannula, pt non compliant with wearing O2 cannula, explained the indication to use it; reminded and checked patient re: oxygen use frequently. On 2gm sodium diet- with very poor appetite; encouraged and assisted in eating and drinking, offered snacks but pt refused. Continent of bowel and bladder- output measured and recorded accordingly. On 1500ml fluid restriction- pt informed and aware. With generalized edema, more noticeable on her legs- kept elevated; skin intact and non-weeping. With SL at R hand and L FA- dressing C/D/I. Maintained on isolation due to Cdiff. Assisted in ADLs. Complained of pain, due PRN pain meds given as prescribed. Pt seen and examined by Dr Jeffers, pt seen without oxygen on, checked saturation and pt desaturating to 70's to 80's- with verbal order for IS- orders made; RT informed as well. To continue monitoring patient.
[2019-10-09 14:21] VITALS: BP 129/81
--- NOTE | 2019-10-09 14:29 | NUR ---
[facility] info placed in the pt's dc instructions and pt encouraged to call her [place] Medicaid cust service for help locating a provider in her area. Possible dc home tomorrow once weaned off O2.
[2019-10-09 14:49] VITALS: BP 138/84
[2019-10-09 19:25] VITALS: BP 138/85
--- NOTE | 2019-10-10 03:00 | NUR ---
Assumed pt care at 1900. Pt's A/OX4,VSS. Up ad fei in room. C/o left thigh/headache medicated per EMAR and effective. Edema persists on BLE 3+,encouraged to elevate extremities but hesistant to. Eyes are jaundiced. Ascites on abd,distended/tender. Had diarrhea 10/08. Remains on special contact isolation. Encouraged to call for help as needed and does so. Resting quietly w/o distress noted, oxygen in place at 2L/NC.
[2019-10-10 04:01] VITALS: BP 137/83
[2019-10-10 04:49] LABS: HEMATOCRIT 24.4 % (37.0-47.0); HEMOGLOBIN 8.3 gm/dL (12.0-15.0); MCH 36.5 pg (26.0-34.0); MCHC 33.9 g/dL (28.0-37.0); MCV 107.6 fL (80.0-100.0); RBC 2.27 mil/uL (4.20-5.00); WBC 6.9 thou/uL (4.0-11.0)
[2019-10-10 04:58] LABS: INR 1.9; PROTIME 19.7 Seconds (9.3-11.4)
[2019-10-10 05:11] LABS: ALBUMIN 4.1 g/dL (3.4-5.0); CALCIUM 9.5 mg/dL (8.5-10.1); CREATININE 1.6 mg/dL (0.6-1.0); POTASSIUM 3.9 mmol/L (3.5-5.1); TOTAL BILIRUBIN 5.6 mg/dL (<0.1-1.0); TOTAL PROTEIN 6.8 g/dL (6.4-8.2)
[2019-10-10 08:22] VITALS: BP 136/83
--- NOTE | 2019-10-10 13:08 | PATH ---
[facility] [address] [place] [address] PATHOLOGY RPT PROCEDURE Name: ADALGISA MACIEL Room #: 456-P ADM IN M.R.#: [id number] Admission: 10/03/19 Date of : 82 Discharge: Report #: [id number] Path Case #: [id number] Note [facility] Accession Number: [id number] TESTS RESULT FLAG UNITS REF RANGE LAB Clinician Provided Cytology Information No. of containers..01 Other (Miscellaneous) Source: 01 ASCITES DIAGNOSIS: 02 ASCITES INCONCLUSIVE. REACTIVE MESOTHELIAL CELLS ARE PRESENT. THIS INTERPRETATION INCLUDES EVALUATION OF A CELL BLOCK. COMMENT, RARE ATYPICAL CELLS ARE PRESENT NOT DIAGNOSTIC OF MALIGNANCY. MANY MONONUCLEAR CELLS ARE PRESENT LIKELY LYMPHOCYTES. SUGGEST FLOW IF LYMPHOPROLIFERATIVE PROCESS IS SUSPECTED. Signed out by: 02 Marcial Lauren MD, Pathologist NPI- [id number] Performed by: 01 Christy Cleaning, Soda Flaker ([facility]) Gross description: 01 20 ML, CLEAR YELLOW, 1 TP 1 CB /LCS 10/08/2019 1127 Local FLAG LEGEND: L-Low Normal,H-High Normal,LL-Alert Low,HH-Alert High <-Panic Low,>-Panic High,A-Abnormal,AA-Critical Abnormal Performed at: [address] [place] [address] Sharad Suggs MD, [address] [place] [phone] Farhad Serrano MD, Specimen Comment: A courtesy copy of this report has been sent to [phone] Specimen Comment: Report sent to Specimen Comment: A duplicate report has been generated due to demographic updates. Performed at: [address], [place], [place] [id number] MD Sharad Suggs MD Phone: [phone]
--- NOTE | 2019-10-10 15:03 | NUR ---
CARE TEAM INDICATED THAT THEY ANTICIPATE PT WILL LIKELY BE MEDICALLY STABLE TO DC HOME TOMORROW. PT TO WEAN OFF O2. PT WILL NEED CLOSE GI FOLLOW UP FOR 1X PER WEEK OR 2 XS PER WEEK PARACENTESIS. PT GIVEN INFO FOR RESOURCES UPON DC AND DIRECTED TO REACH OUT TO [place] MEDICAID TO FIND PCP. CM TO FOLLOW INDICTED WITH DC PLANNING.
[2019-10-10 15:51] VITALS: BP 130/77
--- NOTE | 2019-10-10 19:29 | NUR ---
PT A&OX4, VSS, C/O PAIN. PATIENT SKIN JAUNDICE. PATIENT ABDOMEN DISTENDED. PATIENT HAS POOR APPETITE. NO SIGNS OF DISTRESS.
[2019-10-10 20:10] VITALS: BP 112/56
[2019-10-11 03:53] VITALS: BP 145/83
--- NOTE | 2019-10-11 04:32 | NUR ---
ASSUMED CARE OF PT AT 1900HRS. PT IS AOX4 AND LETS NEEDS BE KNOWN. FALL PRECAUTION IN PLACE. PT DESATS ON RA AND USED 2L O2 VIA NC. PT REPORTED SOME PAIN AND WAS TREATED WITH PRN MEDS. PT IS JAUNDICED AND ABD IS DISTENDED. PT HAD A CIWA OF 0 THIS SHIFT. PT SLEPT VERT LITTLE THIS SHIFT. PT HAS LOW APPETITE. PT IS ON 1500MK FLUID RESTRICTION. VSS AND NO S/S OF ACUTE DISTRESS. WILL CONTINUE TO MONITOR.
[2019-10-11 04:45] LABS: ALBUMIN 4.4 g/dL (3.4-5.0); CALCIUM 9.6 mg/dL (8.5-10.1); CREATININE 1.4 mg/dL (0.6-1.0); PHOSPHORUS 2.2 mg/dL (2.5-4.9); POTASSIUM 3.4 mmol/L (3.5-5.1)
[2019-10-11 07:35] VITALS: BP 138/78
--- NOTE | 2019-10-11 14:37 | NUR ---
CARE TEAM INDICATED THAT PT IS PROGRESSING TOWARD GOAL OF DISHCARGE. PULM HAD BEEN CONSULTED PT IS BACK ON O2 NEEDING 3L CONTINUOUS. CM SPOKE WITH PT AND INDICATED THAT PT MAY NEED HOME O2 UPON DC ASKED IF SHE HAD PEFERENCE FOR PROVIDER. SHE INDICATED NONE. CM NOTIFIED [facility]. CLINICAL FAXED TO [facility] OFFICE. MELINA PENNYJAYDE BROUGHT PORTABLE TANK FOR POSSIBLE WEEKEND DC AND LEFT IT IN PT'S ROOM. SCRIPT WITH QUALIFYING DX AND NEEDED LITER FLOW WILL NEED TO BE FAXED TO UPON DC. PT WILL NEED TO CONTACT [facility] FOR HOME SET UP AFTER DISCHARGE. HOSPITALIST WANTS PT TO HAVE HH NURISNG UPON DC. DR. HALE TO FOLLOW PT HADN'T CALLED TO ESTABLISH HERSELF WITH A PCP YET. REFERRALS BEING SENT TO FIND PROVIDER. DISCHARGE ANTICIPATED OVER WEEKEND. FAX O2 SCRIPT AND DC ORDERS TO [facility]
[2019-10-11 15:06] VITALS: BP 122/70
--- NOTE | 2019-10-11 15:10 | NUR ---
FAXED REFERRAL TO [facility] SPOKE WITH SUE IN INTAKE SHE RECEIVED REFERRAL AND THEY ARE REVIEWING. DP TO FOLLOW.
[2019-10-11 15:36] VITALS: BP 129/81
--- NOTE | 2019-10-11 15:39 | NUR ---
[facility] CAN ACCEPT PT FOR HH NURSING UPON DISHCARGE. FAX ORDERS AND SUMMERY TO THEM AT CALL TO NOTIFY OF DC. IF PT QUALIFIES FOR BART OXYGEN FAX SCRIPTS WITH QUALIFYING DIAGNOSIS TO [facility] AT CALL TO NOTIFY OFFICE. LIAJAYDE MELINA HAD DROPPED OFF PORTABLE TANK FOR PT TO TAKE HOME WITH HER ON MONDAY IT IS IN HER ROOM.
--- NOTE | 2019-10-11 19:27 | NUR ---
PT A&OX4, VSS, PAIN IN BACK. NEW IV IN RIGHT FOREARM. ABDOMEN DISTENDED. PATIETN ON 3L OF OXYGEN. PATIENT SKIN JAUNDICE. PATIENT HAS POOR APPETITE. NO SIGNS OF DISTRESS. WILL CONTINUE TO MONITOR.
[2019-10-11 20:33] VITALS: BP 126/72
--- NOTE | 2019-10-12 01:54 | NUR ---
PT CARE ASSUMED AT 1900 WITH PT IN ROOM .PT IS UO AD MARCEL .PT IS A/O X4.PT IS ON 3L OF O2 PER NASAL CANULA.PT IS ON 1500CC/24HRS FLUID RESTRICTION.PT O2 DROPS WHEN SHE WALKS,PT HAS A DISTENDED ABD AND HAS CHRONIC BACK PAIN.PT HAS TRAMADOL FOR PAIN MANAGEMENT.WILL CONTINUE TO MONITOR
[2019-10-12 05:02] VITALS: BP 119/69
[2019-10-12 05:20] LABS: INR 2.1; PROTIME 21.4 Seconds (9.3-11.4)
[2019-10-12 05:26] LABS: ALBUMIN 4.8 g/dL (3.4-5.0); CALCIUM 9.8 mg/dL (8.5-10.1); CREATININE 1.3 mg/dL (0.6-1.0); DIRECT BILIRUBIN 3.5 mg/dL (<0.1-0.2); POTASSIUM 3.7 mmol/L (3.5-5.1); TOTAL PROTEIN 7.2 g/dL (6.4-8.2)
[2019-10-12 05:28] LABS: TOTAL BILIRUBIN 7.4 mg/dL (<0.1-1.0)
[2019-10-12 07:42] VITALS: BP 135/75
[2019-10-12 14:38] VITALS: BP 108/63
--- NOTE | 2019-10-12 18:25 | NUR ---
Assumed pt care at 7am.Pt in and out of bed to bathroom independently. Assessment completed.vss.Pt tolerated meds and diet but wanted to nap at alltimes.Dr Jeffers and gi here,no new order noted but wanted pt to stay till am for more stability.Tramadol given with relief later this afternoon.Will continue to monitor.
[2019-10-12 20:30] VITALS: BP 131/86
--- NOTE | 2019-10-13 01:54 | NUR ---
PT CARE ASSUMED AT 1900 WITH PT IN BED WATCHING TV AT 1900.PT IS A/O X4.PT IS UP AD MARCEL.PT IS ON 1500CC /24HRS FLIUD RESTRICTION.PT IS ON 2L OF O2.PT C/O PAIN AND PAIN MANAGED WITH TRAMADOL.WILL CONTINUE TO MONITOR
[2019-10-13 04:08] VITALS: BP 114/70
[2019-10-13 07:37] VITALS: BP 120/72
[2019-10-13 07:48] LABS: ALBUMIN 5.2 g/dL (3.4-5.0); CREATININE 1.5 mg/dL (0.6-1.0); PHOSPHORUS 2.1 mg/dL (2.5-4.9); POTASSIUM 3.4 mmol/L (3.5-5.1)
[2019-10-13 15:47] VITALS: BP 99/63
--- NOTE | 2019-10-13 15:48 | NUR ---
PT A&OX4, VSS, PAIN IN LEFT LEG AND BACK. PAIN MEDICATION GIVEN. PT REMAINS ON 2L OF OXYGEN. PT CONTINUES 1500 ML FLUID RESTRICTION. NO SIGNS OF DISTRESS, WILL CONTINUE TO MONITOR.
[2019-10-13 20:33] VITALS: BP 113/76
--- NOTE | 2019-10-14 03:06 | NUR ---
ASSUMED CARE OF PT AT 1900HRS. PT IS AOX4 AND UP AD MARCEL. PT IS ON 2L O2 VIA NC AND PT HAS BEEN KEEPING THE O2 ON. PT FINISHED HER DINNER ENSURE. PT REPORTED SOME PAIN IN HER LEFT THIGH AND WAS TREATED WITH PRN PAIN MEDS BUT HAD NO RELIEF. PT IS JAUNDICED. VSS AND NO S/S OF ACUTE DISTRESS. WILL CONTINUE MONITOR.
[2019-10-14 04:41] VITALS: BP 103/67
--- NOTE | 2019-10-14 05:55 | HC ---
[facility] [place] [place] [address] CONSULTATION Name: ADALGISA MACIEL Room #: 456-P ADM IN M.R.#: [id number] Admission: 10/03/19 Attend Phys: Gus Jeffery Discharge: Date of : 82 Report #: [id number] THIS REPORT FOR: cc: NO FAMILY PHYSICIAN or PCP NO FAMILY PHYSICIAN or PCP Leonidas Mcnamara MD ~ CC: Gus Jeffery NO PCP REASON FOR CONSULTATION: Elevated creatinine. REASON FOR PRESENTATION: Bilateral lower extremity swelling. HISTORY OF PRESENT ILLNESS: A 38-year-old who was diagnosed to have liver issues in January of last year at [facility]. This was attributed to alcohol abuse. She was admitted to our facility here back in July for hepatic encephalopathy and was found to have portal vein thrombosis. She was transferred to [facility]. Her creatinine at that time was in the 1.1 range. She tells me that she has required dialysis for an extended period of time during the month of July. She was discharged from [facility] on September 01. She tells me that she was not requiring dialysis. She was not taking any diuretics. Over the last couple of days, she has been gaining significant amount of weight. She has bilateral lower extremity edema. She presented for further evaluation and management. She was found to have a creatinine value of 1.5 with a potassium value of 2.5. Total bilirubin was 6.8. AST was elevated. She is not actively listed on the transplant list. Because of the rising creatinine, I was asked to assist with the management of her acute kidney injury. PAST MEDICAL HISTORY: Extensive and includes the followin. Alcohol abuse. 2. Alcoholic hepatitis. 3. Portal vein thrombosis. 4. Anxiety. 5. Depression. CURRENT MEDICATIONS: Pentoxifylline and folic acid. SOCIAL HISTORY: No drug abuse. History of alcohol abuse. Currently disabled. FAMILY HISTORY: Mother has hypertension and heart attacks. REVIEW OF SYSTEMS: GENERAL: Significant for weakness. CARDIOVASCULAR: Dyspnea on exertion. PULMONARY: No cough or hemoptysis. GASTROINTESTINAL: Abdominal distensions and early satiety. [facility] [address] [place] [address] CONSULTATION Name: ADALGISA MACIEL Room #: 456-P [facility] IN M.R.#: [id number] Admission: 10/03/19 Attend Phys: Gus Jeffery Discharge: Date of : 82 Report #: [id number] GENITOURINARY: No frequency, no urgency. MUSCULOSKELETAL: As per the history of present illness. PHYSICAL EXAMINATION: GENERAL: The patient is jaundiced. VITAL SIGNS: Blood pressure 114/74, temperature 36.8, pulse rate is 105, respiratory rate 16. HEAD AND NECK: No jugular venous distention. CHEST: Decreased air entry bilaterally. CARDIOVASCULAR: No rub. ABDOMEN: Distended with significant ascites. EXTREMITIES: Lower extremities, significant edema. LABORATORY VALUES: From today, pending. Yesterday's laboratory values revealed a sodium of 133, potassium of 2.5, BUN of 18, creatinine of 1.5. Total bilirubin of 6.8, AST of 82. Abdominal ultrasound reviewed. Kidneys appear normal. Chest x-ray with no active issues. IMPRESSION AND PLAN: 1. Acute kidney injury. 2. End-stage liver disease due to ethanol abuse. 3. Ascites. 4. Anemia. 5. Portal vein thrombosis. 6. Hypokalemia. 7. Initiate appropriate workup for her acute kidney injury. Potential differential diagnoses include hepatorenal syndrome. She does have significant lower extremity edema and once I obtain the urinary study, I will decide about further diuresis. As of this point, she is currently maintained on spironolactone. 8. Replace electrolytes. 9. Initiate IV albumin. 10. Once we obtain the urine studies, we will decide about midodrine and octreotide. <ELECTRONICALLY SIGNED> By: Leonidas Mcnamara MD 10/14/19 [id number] Leonidas Mcnamara MD /nt
[2019-10-14 06:09] LABS: ALBUMIN 5.5 g/dL (3.4-5.0); CALCIUM 9.5 mg/dL (8.5-10.1); CREATININE 1.5 mg/dL (0.6-1.0); PHOSPHORUS 2.3 mg/dL (2.5-4.9); POTASSIUM 3.9 mmol/L (3.5-5.1)
[2019-10-14 08:20] VITALS: BP 145/80
--- NOTE | 2019-10-14 11:58 | NUR ---
ASSUMED CARE AT 0700. PT ALERT AND ORIENTED. VSSA/2L O2. NO COMPLAINTS AT THIS TIME. TOLERATING PO, FLUID RESTRICTED. ENCOURAGE SUPPLEMENTS. PIV WITHOUT ISSUES. PRN MEDS GIVEN ORDERED. WILL MONITOR
--- NOTE | 2019-10-14 14:10 | NUR ---
CARE TEAM INDICATED THAT PT IS PROGRESSING TOWARD GOAL OF DISHCARGE. [facility] CAN ACCEPT PT FOR HH NURSING UPON DC AND [facility] CAN PROVIDE HOME O2 IF NEEDED. SCRIPT JUST NEEDS TO BE FAXED. CM FOLLOWING REGARDING DC PLANNING.
[2019-10-14 14:58] VITALS: BP 115/74
[2019-10-14 19:28] VITALS: BP 108/72
--- NOTE | 2019-10-15 03:00 | NUR ---
Assumed pt care at 1900. Pt's A/OX4,VSS. Up ad fei w/o problems. C/o pain to left thigh medicated per EMAR with some relief reported. Remains on special contact isolation, no diarrhea reported this shift. Calls approp for help.
[2019-10-15 04:44] VITALS: BP 103/59
[2019-10-15 05:28] LABS: BASOPHILS 0.4 % (0.0-2.0); EOSINOPHILS 0.4 % (0.0-3.0); HEMATOCRIT 27.9 % (37.0-47.0); HEMOGLOBIN 9.4 gm/dL (12.0-15.0); LYMPHOCYTES 17.5 % (24.0-44.0); MCH 35.6 pg (26.0-34.0); MCHC 33.5 g/dL (28.0-37.0); MCV 106.2 fL (80.0-100.0); MONOCYTES 7.4 % (1.0-8.0); PLATELET COUNT 109 thou/uL (150-400); POLYS 74.3 % (36.0-66.0); RBC 2.63 mil/uL (4.20-5.00); RDW 17.3 % (10.5-14.5); WBC 12.1 thou/uL (4.0-11.0)
[2019-10-15 05:49] LABS: ALBUMIN 5.5 g/dL (3.4-5.0); CALCIUM 9.7 mg/dL (8.5-10.1); CREATININE 1.7 mg/dL (0.6-1.0); MAGNESIUM 1.3 mg/dL (1.8-2.4); POTASSIUM 4.2 mmol/L (3.5-5.1); TOTAL BILIRUBIN 7.3 mg/dL (<0.1-1.0); TOTAL PROTEIN 7.6 g/dL (6.4-8.2)
[2019-10-15 13:03] LABS: INR 1.6; PROTIME 16.9 Seconds (9.3-11.4)
--- NOTE | 2019-10-15 13:49 | 2DMMODE ---
[facility] [address] [place] [address] 2 D/M-MODE ECHOCARDIOGRAM Name: JANELLADALGISA L Room #: 456-P ADM IN M.R.#: [id number] Admission: 10/03/19 Attend Phys: Gus Jeffery Discharge: Date of : 82 Report #: [id number] THIS REPORT FOR: cc: NO FAMILY PHYSICIAN or PCP NO FAMILY PHYSICIAN or PCP Robert Francis MD ~ APPROVED REPORT Study performed: 10/15/2019 11:04:47 EXAM: Comprehensive 2D, Doppler, and color-flow Echocardiogram Patient Location: Bedside Room #: 456 Status: routine BSA: 1.77 HR: 71 bpm BP: 103/59 mmHg Rhythm: NSR Other Information Study Quality: Adequate Indications Hypertension/HDD Pilmonary edema, ETOH 2D Dimensions RVDd: 36.15 mm IVSd: 9.22 (7-11mm) LVOT Diam: 24.16 (18-24mm) LVDd: 44.41 mm PWd: 9.27 (7-11mm) Ascending Ao: 26.21 (22-36mm) LVDs: 27.11 (25-40mm) Aortic Root: 31.54 mm IVC: 22.00 mm Volumes Left Atrial Volume (Systole) Single Plane 4CH: 65.05 mL Single Plane 2CH: 62.28 mL LA ESV Index: 39.00 mL/m2 Aortic Valve AoV Peak Jose.: 1.35 m/s AO Peak Gr.: 7.24 mmHg LVOT Max P.97 mmHg LVOT Max V: 1.11 m/s CAROL Vmax: 3.80 cm2 [facility] [address] [place] [address] 2 D/M-MODE ECHOCARDIOGRAM Name: ADALGISA MACIEL Room #: 456-P [facility]#: [id number] Admission: 10/03/19 Attend Phys: Gus Manzano Jul Discharge: Date of : 82 Report #: [id number] Mitral Valve E/A Ratio: 1.9 MV Decel. Time: 220.69 ms MV E Max Jose.: 1.20 m/s MV A Jose.: 0.64 m/s MV PHT: 64.00 ms IVRT: 64.59 ms Pulmonary Valve PV Peak Jose.: 1.20 m/s PV Peak Gr.: 5.74 mmHg Pulmonary Vein P Vein S: 0.64 m/s P Vein A: 0.22 m/s P Vein D: 0.51 m/s P Vein A Dur.: 92.3 msec P Vein S/D Ratio: 1.25 Tricuspid Valve TR Peak Jose.: 2.77 m/s TR Peak Gr.: 30.72 mmHg PA Pressure: 40.00 mmHg Left Ventricle The left ventricle is normal size. There is normal LV segmental wall motion. There is normal left ventricular wall thickness. The left ventricular systolic function is normal. The left ventricular ejection fraction is within the normal range. LVEF is 60-65%. The left ventricular diastolic function is normal. Right Ventricle The right ventricle is normal size. The right ventricular systolic function is normal. Atria Left atrium is mildly dilated. The right atrium size is normal. Aortic Valve The aortic valve is normal in structure. No aortic regurgitation is present. There is no aortic valvular stenosis. Mitral Valve The mitral valve is normal in structure. Trace mitral regurgitation. No evidence of mitral valve stenosis. Tricuspid Valve [facility] [address] [place] [address] 2 D/M-MODE ECHOCARDIOGRAM Name: MACIELADALGISA DORSEY Room #: 456-P [facility] IN M.R.#: [id number] Admission: 10/03/19 Attend Phys: Gus Sen Discharge: Date of : 82 Report #: [id number] The tricuspid valve is normal in structure. There is trace tricuspid regurgitation. Estimated PAP 35 mmHg. Pulmonic Valve The pulmonary valve is normal in structure. There is no pulmonic valvular regurgitation. Great Vessels The aortic root is normal in size. IVC is dilated and collapses >50% with inspiration. Pericardium There is no pericardial effusion. <Conclusion> The left ventricle is normal size. There is normal left ventricular wall thickness. The left ventricular systolic function is normal. The right ventricle is normal size. Left atrium is mildly dilated. The aortic valve is normal in structure. Trace mitral regurgitation. There is trace tricuspid regurgitation. Estimated PAP 35 mmHg. <ELECTRONICALLY SIGNED> By: Robert Francis MD 10/15/19 1347 [id number] Robert Francis MD /INF
[2019-10-15 15:47] VITALS: BP 101/53
--- NOTE | 2019-10-15 15:52 | NUR ---
ON-GOING ASSESSMENT: CM REVIEWED CHART AND SPOKE WITH ATTENDING. PT IS SLOWLY PROGRESSING TOWARDS DISCHARGE GOALS. PT HAS TO BE OFF OF ETOH FOR MONTHS PRIOR TO BEING EVALUATED FOR LIVER TRANSPLANT. NO PLANS FOR DISCHARGE THIS DAY. CM WILL CONTINUE TO FOLLOW TO ASSIST NEEDED. PLANS ARE FOR PATIENT TO LIKELY USES [facility] AT DISCHARGE. CM WILL CONTINUE TO FOLLOW TO ASSIST NEEDED.
--- NOTE | 2019-10-15 18:39 | NUR ---
PT IS AOX4, VSS, PAIN IN LEFT THIGH CONTROLLED WITH ORAL PAIN ANALGESIC. PT IS UP AD MARCEL. IV PATENT WITH ANTIBIOTIC THERAPY. PT HAS POOR APPETITE BUT DRINKS ENSURE AND REMAINS ON 1500 FLUID RESTRICTION. PT WAS TEARFUL AND WANTS TO GO HOME. PT WILL CALL APPROP. CALL LIGHT IN REACH.
[2019-10-15 18:44] VITALS: BP 101/58
[2019-10-15 20:47] VITALS: BP 107/67
--- NOTE | 2019-10-16 03:48 | NUR ---
ASSUMED CAAER OF PT AT 1900HRS. PT IS AOX4 AND LETS NNEEDS BE KNOWN. PT IS UP AD MARCEL. PT ON O2 VIA NC AT 1L. PT COMPLAINED OF PAIN AND WAS TREATED WITH PRN PAIN MEDS. PT IS ON 1500ML FLUID RESTRECTION. PT WAS ABLE TO GET COMFORTABLE AND SLEEP PART OF THE SHIFT. VSS AND NO S/S OF ACUTE DISTRESS. WILL CONTINUE TO MONITOR FOR CHANGES.
[2019-10-16 03:51] VITALS: BP 109/58
[2019-10-16 05:59] LABS: ABSOLUTE NEUTROPHILS 10.6 thou/uL (1.4-8.2); BASOPHILS 0.3 % (0.0-2.0); EOSINOPHILS 0.3 % (0.0-3.0); HEMATOCRIT 26.9 % (37.0-47.0); HEMOGLOBIN 9.1 gm/dL (12.0-15.0); LYMPHOCYTES 16.1 % (24.0-44.0); MCH 35.8 pg (26.0-34.0); MCHC 33.7 g/dL (28.0-37.0); MONOCYTES 8.4 % (1.0-8.0); PLATELET COUNT 88 thou/uL (150-400); POLYS 74.9 % (36.0-66.0); RBC 2.54 mil/uL (4.20-5.00); RDW 17.6 % (10.5-14.5); WBC 14.1 thou/uL (4.0-11.0)
[2019-10-16 06:15] LABS: INR 1.6; PROTIME 16.7 Seconds (9.3-11.4)
[2019-10-16 07:45] VITALS: BP 118/64
[2019-10-16 08:20] LABS: CALCIUM 10.5 mg/dL (8.5-10.1); POTASSIUM 4.1 mmol/L (3.5-5.1)
[2019-10-16 08:24] LABS: ALBUMIN 5.7 g/dL (3.4-5.0)
--- NOTE | 2019-10-16 15:11 | NUR ---
GI INDICATED PT IS TO HAVE LFT'S AND INR DRAWN TOMORROW AM. PT IS PROGRESSING SLOWLY TOWARD GOAL OF DISCAHRGE. [facility] CAN ACCEPT PT FOR NURSING AND [facility] CAN PROVIDE HOME O2. CM TO FOLLOW INDICATED WITH DC PLANNING.
[2019-10-16 16:24] VITALS: BP 112/49
--- NOTE | 2019-10-16 17:08 | NUR ---
PT IS AOX4, VSS, NO C/O PAIN AT THIS TIME. PT RECEIVES ORAL PAIN ANALGESIC WHEN NEEDED FOR PAIN IN LEFT THIGH. PT TAKES MEDS NEEDED. APPETITE IS POOR, REMAINS ON 1500 ML RESTRICTION. PT IS UP AD MARCEL IN ROOM, CALLS APPROPRIATELY FOR ASSISTANCE. IV IS PATENT IN RIGHT FOREARM. PT APPEARS JAUNDICE WITH ASCITES IN HER ABDOMINAL AREA. CALL LIGHT IN PLACE WILL CONTINUE TO MONITOR.
[2019-10-16 19:48] VITALS: BP 110/58
--- NOTE | 2019-10-17 02:03 | NUR ---
ASSUMED CARE OF PT AT 1900HRS. PT AOX4 AND LETS NEEDS BE KNOWN. PT IS UP AD MARCEL. PT COMPLAINED OF PAIN IN LEFT THIGH AND HEADACHE. PRN MEDS PROVIDED. PT IS JAUNDICED AND HAS POOR APPETITE. ALBUMIN TREATMENT CONTINUED. PT IS ON 1L O2 VIA NC. PT WAS ABLE TO GET COMFORTABLE AND SLEEP PART OF THE SHIFT. VSS AND NO S/S OF ACUTE DISTRESS. WILL CONTINUE TO MONITOR FOR CHANGES.
[2019-10-17 05:45] VITALS: BP 118/64
[2019-10-17 05:58] LABS: ABSOLUTE NEUTROPHILS 10.6 thou/uL (1.4-8.2); BASOPHILS 0.5 % (0.0-2.0); EOSINOPHILS 0.5 % (0.0-3.0); HEMATOCRIT 23.4 % (37.0-47.0); LYMPHOCYTES 14.2 % (24.0-44.0); MCH 35.6 pg (26.0-34.0); MCV 104.5 fL (80.0-100.0); MONOCYTES 8.1 % (1.0-8.0); PLATELET COUNT 83 thou/uL (150-400); POLYS 76.7 % (36.0-66.0); RBC 2.24 mil/uL (4.20-5.00); RDW 17.4 % (10.5-14.5); WBC 13.9 thou/uL (4.0-11.0)
[2019-10-17 06:11] LABS: INR 1.7; PROTIME 17.2 Seconds (9.3-11.4)
[2019-10-17 06:24] LABS: ALBUMIN 5.9 g/dL (3.4-5.0); CALCIUM 10.3 mg/dL (8.5-10.1); MAGNESIUM 1.5 mg/dL (1.8-2.4); POTASSIUM 3.9 mmol/L (3.5-5.1); TOTAL PROTEIN 7.9 g/dL (6.4-8.2)
[2019-10-17 08:27] VITALS: BP 105/55
[2019-10-17 14:09] VITALS: BP 129/81
[2019-10-17 15:39] VITALS: BP 102/46
--- NOTE | 2019-10-17 15:55 | NUR ---
CARE TEAM INDICATED THAT PT PT MAY NOT DC HOME THIS DAY. STILL WAITING ON SAT EXERCISE TEST (ORDER ENTERED). HOSPITALIST INDICATED THAT PT HADN'T BEEN SEEN MY PULM RECENTLY AND THAT WE WERE AWAITING THEIR INPUT. GI HAD SENT CLINICAL INFOR OVER TO [facility] FOR PT TO BE ABLE TO FOLLOW UP THERE REGARDING FURTURE TRANSPLANT NEEDS. [facility] WILL ACCEPT PT UPON DC. PT TO HAVE O2 THROUGH [facility] JUST NEED TESTING AND SCRIPT TO FINISH ORDER OUT. CM FOLLOWING.
--- NOTE | 2019-10-17 17:32 | NUR ---
PT IS AOX4, VSS, PAIN IN STOMACH AREA CONTROLLED WITH PAIN ANALGESIC. PT IS UP AD MARCEL, O2 1L. PT HAS JAUNDICE AND ABDOMINAL ASCITES. PT CALLS APPROPRIATELY. REMAINS ON 1500CC FLUID RESTRICTION. IV PATENT IN RIGHT FA. WILL CONTINUE TO MONITOR.
[2019-10-17 19:39] VITALS: BP 103/59
--- NOTE | 2019-10-18 02:25 | NUR ---
ASSESSED AT START OF SHIFT PT RESTING IN BED. UP ADLIB IN ROOM. ISOLATION MAINTAINED FOR C-DIFF. SLIGHTLY JAUNDICED SKIN AND ASCITIES IN ABD. ALBUMIN TX INFUISING. TRAMADOL GIVEN FOR PAIN IN LEFT THIGH. ON A 1500CC FLUID RESTRICTION. ON 1L OF O2. SITTING 91% ON RA AND 94% ON NC. CALL LIGHT IN REACH ANTICIPATING D/C TOMORROW. WILL CONT WITH POC TILL EOS.
[2019-10-18 05:20] VITALS: BP 128/79
[2019-10-18 08:00] VITALS: BP 119/68
[2019-10-18] MEDS ORDERED: TRAMADOL 50 MG50 MG PO (12:18)
[2019-10-18] MEDS ORDERED: FLORANEX GRANU1 EACH PO (12:18)
[2019-10-18] MEDS ORDERED: PEPCID20 MG PO (12:18)
[2019-10-18] MEDS ORDERED: MULTIVITAMINS1 EAC7 PO (12:18)
[2019-10-18] MEDS ORDERED: FIRVANQ50 MG/1 ML PO (12:18)
[2019-10-18] MEDS ORDERED: MIDODRINE HCL 55 M1 PO (12:18)
[2019-10-18] MEDS ORDERED: XIFAXAN550 MG PO (12:18)
[2019-10-18] MEDS ORDERED: VITAMIN B-1100 M2 PO (12:18)
[2019-10-18] MEDS ORDERED: SPIRONOLACTONE25 M1 PO (12:18)
[2019-10-18 12:28] LABS: ABSOLUTE NEUTROPHILS 11.1 thou/uL (1.4-8.2); BASOPHILS 0.4 % (0.0-2.0); EOSINOPHILS 0.4 % (0.0-3.0); HEMATOCRIT 22.8 % (37.0-47.0); HEMOGLOBIN 8.1 gm/dL (12.0-15.0); LYMPHOCYTES 14.3 % (24.0-44.0); MCH 37.1 pg (26.0-34.0); MCHC 35.6 g/dL (28.0-37.0); MCV 104.4 fL (80.0-100.0); MONOCYTES 6.5 % (1.0-8.0); PLATELET COUNT 103 thou/uL (150-400); POLYS 78.4 % (36.0-66.0); RBC 2.19 mil/uL (4.20-5.00); RDW 17.7 % (10.5-14.5); WBC 14.2 thou/uL (4.0-11.0)
[2019-10-18 12:45] LABS: ALBUMIN 5.8 g/dL (3.4-5.0); CALCIUM 10.6 mg/dL (8.5-10.1); CREATININE 2.1 mg/dL (0.6-1.0); MAGNESIUM 1.7 mg/dL (1.8-2.4); POTASSIUM 3.8 mmol/L (3.5-5.1); TOTAL BILIRUBIN 6.6 mg/dL (<0.1-1.0)
[2019-10-18 12:56] LABS: INR 1.6; PROTIME 16.7 Seconds (9.3-11.4)
[2019-10-18 14:40] VITALS: BP 129/81
--- NOTE | 2019-10-18 16:09 | NUR ---
PT A&OX4, VSS, PAIN. PATIENT DISCHARGED HOME WITH HOME HEALTH. NO SIGNS OF DISTRESS. ALL BELONGINGS WITH PATIENT.
== END 2019-10-18 16:35 | disposition home health service (06) | DRG 441 ==
LOC: ER 02:04 → 3W 03:42 → EROBS 03:42 → 3W 05:25 → 4W 15:08
PROVIDERS: Emergency Medicine; Hospitalist; Internal Medicine; Internal Medicine Nephrology; Nurse Practitioner; Nurse Practitioner Family; ADMIT Hospitalist
DX: K72.90 Hepatic failure, unspecified without coma (principal); N18.6 End stage renal disease; I81 Portal vein thrombosis; J96.01 Acute respiratory failure with hypoxia; E43 Unspecified severe protein-calorie malnutrition; K76.7 Hepatorenal syndrome; N17.9 Acute kidney failure, unspecified; K76.6 Portal hypertension; E72.4 Disorders of ornithine metabolism; A04.72 Enterocolitis due to Clostridium difficile, not specified as recurrent; D68.9 Coagulation defect, unspecified; I12.0 Hypertensive chronic kidney disease with stage 5 chronic kidney disease or end stage renal disease; F41.9 Anxiety disorder, unspecified; F32.9 Major depressive disorder, single episode, unspecified; D53.9 Nutritional anemia, unspecified; E87.6 Hypokalemia; K70.31 Alcoholic cirrhosis of liver with ascites; F10.10 Alcohol abuse, uncomplicated; D63.8 Anemia in other chronic diseases classified elsewhere; Z20.828 Contact with and (suspected) exposure to other viral communicable diseases; Z68.34 Body mass index [BMI] 34.0-34.9, adult; Z82.49 Family history of ischemic heart disease and other diseases of the circulatory system; Z87.891 Personal history of nicotine dependence; Z91.14 Patient's other noncompliance with medication regimen
CPT/HCPCS: 10047